=== PATIENT | female | born 1960 | race Hispanic/Latino ===

== ENCOUNTER → 2019-04-19 | Outpatient (CLI) | payer OTHER ==
[~2019-04-19] MED LIST: ASPIR 8181 MG PO; CARVEDILOL6.25 MG PO; CLONIDINE HCL0.1 MG; CLONIDINE1 EAC1 TOP; FENOFIBRATE145 MG PO; METFORMIN HCL500 MG PO
--- NOTE | 2019-04-24 08:39 | Diagnostic Imaging Report ---
#[id number] - MGSCRBIL #BILATERAL DIGITAL SCREENING MAMMOGRAM WITH CAD: 04/19/2019 CLINICAL: Routine screening. Comparison is made to exam dated: 07/28/2017 mammogram - [facility]. Current study contains 4 films. There are scattered fibroglandular elements in both breasts. Current study was also evaluated with a Computer Aided Detection (CAD) system. Benign appearing microcalcifications, left breast. No significant masses, calcifications, or other findings are seen in either breast. IMPRESSION: BENIGN There is no mammographic evidence of malignancy. A 1 year screening mammogram is recommended. The patient will be notified by letter of the results. SERGIO ROTH M.D. ct/penrad:04/21/2019 15:55:47 Digital Publishing Specialist: Alannah MARIA(Bala)(M), [facility] letter sent: Normal Exam Mammogram BI-RADS: 2 Benign
== END ==
LOC: MAMMO 15:00
PROVIDERS: ATTEND Internal Medicine
DX: Z12.31 Encounter for screening mammogram for malignant neoplasm of breast (principal)
CPT/HCPCS: 77067

== ENCOUNTER 2020-08-11 22:46 | Emergency (ER) | payer OTHER ==
[~2020-08-11] VITALS: Ht 165.1 cm; Wt 68.0 kg
[2020-08-11] MEDS ORDERED: CLONIDINE HCL 0.1 MG TAB PO ONE (23:15)
[2020-08-11] MEDS ORDERED: CLONIDINE HCL 0.1 MG TAB ONE ×2 (23:23→23:27)
[2020-08-11] MEDS ORDERED: LOSARTAN POTASS25 MG PO (23:27)
[2020-08-11] MEDS ORDERED: RESTORIL15 MG PO (23:27)
[2020-08-11] MEDS ORDERED: CEFDINIR300 MG PO (23:52)
[2020-08-11] MEDS ORDERED: CEFTRIAXONE SOD 1 GM/NS 50 ML 50 ML IV ONE (23:57)
[2020-08-12] MEDS ORDERED: CEFTRIAXONE SOD 1 GM/NS 50 ML 50 ML IV ONE
[2020-08-12] MEDS ORDERED: CEFTRIAXONE SOD 1 GM VIAL IV ONE
== END 2020-08-12 00:14 | disposition home or self-care (01) ==
LOC: FSED 23:15
DX: I16.0 Hypertensive urgency (principal); N39.0 Urinary tract infection, site not specified; F41.9 Anxiety disorder, unspecified; G47.00 Insomnia, unspecified; I10 Essential (primary) hypertension
CPT/HCPCS: 80053; 81003; 82553; 84484; 85025; 93005; 99284; J0696

== ENCOUNTER → 2020-09-25 | Outpatient (CLI) | payer OTHER ==
[~2020-09-25] MED LIST changes: +CEFDINIR300 MG PO; +LOSARTAN POTASS25 MG PO; +RESTORIL15 MG PO
== END ==
LOC: MAMMO 14:18
PROVIDERS: ATTEND Internal Medicine
DX: Z12.31 Encounter for screening mammogram for malignant neoplasm of breast (principal)
CPT/HCPCS: 77067

== ENCOUNTER 2025-04-12 10:00 | Inpatient (IN) | payer MEDICARE, OTHER ==
[2025-04-12] VITALS (8 sets, daily range): BP systolic 134–140; BP diastolic 86–91; PULSE 63–74; RESP 12–20; TEMP 97.9–98.3; O2SAT 96–100
[~2025-04-12] VITALS: Ht 162.6 cm; Wt 62.1 kg
[~2025-04-12 10:00] MED LIST changes: +CARVEDILOL12.5 MG PO; +LEVOTHYROXINE50 MCG PO; +LOSARTAN POTAS100 MG PO; +PANTOPRAZOLE SO40 MG PO; +VIT D PO
[2025-04-12 10:19] LABS: BASOPHILS % 0.6 % (0.0-1.0); EOSINOPHILS % 1.6 % (0.0-6.0); LYMPHOCYTES % 44.6 % (18.0-39.1); MONOCYTES % 10.3 % (4.4-11.3); NEUTROPHILS % 42.7 % (38.7-80.0); RED CELL DISTRIBUTION WIDTH 12.0 % (11.7-14.4)
[2025-04-12] MEDS: METOPROLOL TARTRATE INJ 1 MG/ML VIAL IV ONE (10:29)
[2025-04-12] MEDS: METOPROLOL TARTRATE 25 MG TAB PO ONE (10:29)
[2025-04-12] MEDS: SODIUM CHLORIDE 0.9% 1000ML 1,000 ML IV STA (10:29)
[2025-04-12] MEDS: ASPIRIN 81 MG CHEW TAB PO ONE (10:30)
[2025-04-12 10:35] LABS: INR 0.87
[2025-04-12 10:52] LABS: EST GLOMERULAR FILTRATION RATE 79.0 ML/MIN (>=60)
[2025-04-12] MEDS ORDERED: Morphine 2mg Syringe 2 MG/ML SYR IV PRN (12:30)
[2025-04-12] MEDS ORDERED: SODIUM CHLORIDE 0.9% 1000ML 1,000 ML IV SCH (12:30)
[2025-04-12] MEDS ORDERED: ONDANSETRON HCL INJ 2MG/ML 2ML 2 MG/ML VIAL IV PRN ×2 (12:30→13:45)
[2025-04-12] MEDS ORDERED: DEXTROSE 50% SYRINGE 50 ML IV PRN (13:45)
[2025-04-12] MEDS ORDERED: MELATONIN 5 MG TABLET PO PRN (13:45)
[2025-04-12] MEDS ORDERED: POTASSIUM CHLORIDE 20 MEQ TAB CR PO PRN (13:45)
[2025-04-12] MEDS ORDERED: DOCUSATE SODIUM 100 MG CAP PO PRN (13:45)
[2025-04-12] MEDS ORDERED: DIPHENHYDRAMINE HCL 25 MG CAP PO PRN (13:45)
[2025-04-12] MEDS ORDERED: BENZONATATE 100 MG CAP PO PRN (13:45)
[2025-04-12] MEDS ORDERED: ACETAMINOPHEN 325 MG TAB PO PRN (13:45)
[2025-04-12] MEDS ORDERED: ALBUTEROL/IPRATROPIUM 3 ML NEB NEB PRN (13:45)
[2025-04-12] MEDS ORDERED: SIMETHICONE 80 MG CHEW PO PRN (13:45)
[2025-04-12] MEDS ORDERED: HYDRALAZINE HCL 20 MG/ML VIAL IV PRN (13:45)
[2025-04-12] MEDS ORDERED: LIDOCAINE 4% PATCH TP PRN (13:45)
[2025-04-12] MEDS: ENOXAPARIN SOD INJ 40 MG/0.4 ML SYR SC SCH (16:08)
[2025-04-12] MEDS: METOPROLOL TARTRATE 25 MG TAB PO SCH (16:08)
[2025-04-12] MEDS: ATORVASTATIN 10 MG TAB PO SCH (21:19)
[2025-04-13] VITALS (10 sets, daily range): BP systolic 100–140; BP diastolic 72–90; PULSE 60–74; RESP 16–21; TEMP 97.4–98.5; O2SAT 97–100
[2025-04-13 06:49] LABS: BASOPHILS % 0.9 % (0.0-1.0); EOSINOPHILS % 3.3 % (0.0-6.0); LYMPHOCYTES % 36.9 % (18.0-39.1); MONOCYTES % 10.6 % (4.4-11.3); NEUTROPHILS % 48.1 % (38.7-80.0); RED CELL DISTRIBUTION WIDTH 11.8 % (11.7-14.4)
[2025-04-13 07:33] LABS: CHOL/HDL RATIO 2.6 (3.0-3.6); EST GLOMERULAR FILTRATION RATE 97.0 ML/MIN (>=60); LDL CHOLESTEROL 62.0 MG/DL (60-130)
[2025-04-13 07:52] LABS: PHOSPHORUS 3.2 MG/DL (2.3-4.7)
[2025-04-13] MEDS: PANTOPRAZOLE SOD 40 MG TABEC PO SCH (08:58)
[2025-04-13] MEDS: ASPIRIN 81 MG ENTERIC COATED PO SCH ×2 (08:58→08:59)
[2025-04-13] MEDS ORDERED: ASPIRIN 81 MG ENTERIC COATED PO SCH (09:00)
[2025-04-13] MEDS ORDERED: MECLIZINE HCL 12.5 MG TAB PO PRN (16:15)
[2025-04-14] VITALS: BP 119/81; PULSE 58; RESP 17; TEMP 96.5; O2SAT 100
[2025-04-14 06:17] LABS: EST GLOMERULAR FILTRATION RATE 97.0 ML/MIN (>=60)
[2025-04-14 08:00] VITALS: BP 110/67; PULSE 63; RESP 18; TEMP 98.1; O2SAT 100
[2025-04-14 10:00] VITALS: BP 110/67; PULSE 63; RESP 18; TEMP 98.1; O2SAT 100
[2025-04-14 17:10] VITALS: BP 110/73; PULSE 55; RESP 18; TEMP 98.1; O2SAT 99
== END 2025-04-14 17:50 | disposition home or self-care (01) | DRG 310 ==
LOC: ER 10:03 → ERHOLD 12:22 → MED/SURG2 12:51
PROVIDERS: ADMIT Internal Medicine; ATTEND Internal Medicine
DX: I47.10 Supraventricular tachycardia, unspecified (principal); E03.9 Hypothyroidism, unspecified; R19.7 Diarrhea, unspecified; Z90.49 Acquired absence of other specified parts of digestive tract; Z98.84 Bariatric surgery status; Z79.82 Long term (current) use of aspirin; Z80.1 Family history of malignant neoplasm of trachea, bronchus and lung; Z82.49 Family history of ischemic heart disease and other diseases of the circulatory system; Z79.890 Hormone replacement therapy
CPT/HCPCS: 36415; 70450; 71045; 80048; 80053; 80061; 82550; 82948; 83036; 83735; 83880; 84100; 84439; 84443; 84484; 85025; 85379; 85610; 85730; 93005; 93306; 94799; 99284; J1650; J2470; J7030